=== PATIENT | female | born 1975 | race Caucasian/White ===

== ENCOUNTER 2016-07-06 19:02 | Emergency (ER) | payer OTHER ==
[~2016-07-06] VITALS: Ht 165.1 cm; Wt 76.7 kg
[~2016-07-06 19:02] MED LIST: ASPIR 8181 MG PO; COL100 PO; FER300 PO; HYDROCHLOROTHIA25 MG PO; VITC PO
[2016-07-06 20:55] LABS: BASOPHIL % 0.5 % (0-2); PLATELET COUNT 294 x10^3mcL (130-400)
[2016-07-06 20:59] LABS: RED CELL DISTRIBUTION WIDTH 19.3 % (11.5-14.5)
[2016-07-06 21:16] LABS: CALCIUM 8.6 mg/dL (8.5-10.1); CARBON DIOXIDE 25.8 mmol/L (21-32); CHLORIDE SERUM 104 mmol/L (98-107); CREATININE SERUM 0.5 mg/dL (0.6-1.0); GFR1 > 60 mL/min; GLUCOSE SERUM 91 mg/dL (74-106); POTASSIUM SERUM 3.8 mmol/L (3.5-5.1); SODIUM SERUM 139 mmol/L (136-145)
[2016-07-06 21:26] LABS: ALBUMIN 3.7 g/dL (3.4-5.0); ALKALINE PHOSPHATASE 98 U/L (46-116); AMYLASE 56 U/L (25-115); BILIRUBIN TOTAL 0.34 mg/dL (0.20-1.00); LIPASE 151 IU/L (73-393); TOTAL PROTEIN, SERUM 7.8 g/dL (6.4-8.2)
[2016-07-06 21:40] LABS: ALT/SGPT 33 U/L (14-59); AST/SGOT 18 U/L (15-37)
[2016-07-06 22:41] VITALS: BP 123/76
== END 2016-07-06 22:41 | disposition home or self-care (01) ==
LOC: ED 19:02
PROVIDERS: Emergency Medicine
DX: R11.10 Vomiting, unspecified (principal); I10 Essential (primary) hypertension; Z88.5 Allergy status to narcotic agent; Z87.442 Personal history of urinary calculi
CPT/HCPCS: J2405; J3010; J7030; Q0092

== ENCOUNTER 2016-08-29 01:31 | Emergency (ER) | payer OTHER ==
[2016-08-29 07:22] VITALS: BP 118/70
== END 2016-08-29 07:22 | disposition home or self-care (01) ==
LOC: ED 01:31
DX: K21.9 Gastro-esophageal reflux disease without esophagitis (principal); S39.012A Strain of muscle, fascia and tendon of lower back, initial encounter; Z88.5 Allergy status to narcotic agent; X58.XXXA Exposure to other specified factors, initial encounter; Y93.89 Activity, other specified; Y99.8 Other external cause status; Y92.89 Other specified places as the place of occurrence of the external cause
CPT/HCPCS: J1170; J1885; Q0162

== ENCOUNTER 2016-12-29 16:55 | Emergency (ER) | payer OTHER ==
[2016-12-29 19:53] LABS: BASOPHIL % 0.3 % (0-2); PLATELET COUNT 271 x10^3mcL (130-400)
[2016-12-29 20:03] LABS: CALCIUM 8.7 mg/dL (8.5-10.1); CARBON DIOXIDE 24.8 mmol/L (21-32); CHLORIDE SERUM 105 mmol/L (98-107); CREATININE SERUM 0.6 mg/dL (0.6-1.0); GFR1 > 60 mL/min; GLUCOSE SERUM 118 mg/dL (74-106); POTASSIUM SERUM 3.2 mmol/L (3.5-5.1); SODIUM SERUM 139 mmol/L (136-145)
[2016-12-29 20:08] LABS: ALBUMIN 3.6 g/dL (3.4-5.0); ALKALINE PHOSPHATASE 95 U/L (46-116); ALT/SGPT 21 U/L (14-59); AST/SGOT 13 U/L (15-37); BILIRUBIN TOTAL 0.2 mg/dL (0.20-1.00); TOTAL PROTEIN, SERUM 7.9 g/dL (6.4-8.2)
[2016-12-29 20:09] LABS: RED CELL DISTRIBUTION WIDTH 21.4 % (11.5-14.5)
[2016-12-29 20:46] LABS: rbc morphology (normal/abnorm) ABNORMAL (NORMAL)
[2016-12-29 20:49] LABS: target cell (codocyte) 1+
[2016-12-29 23:23] VITALS: BP 116/72
== END 2016-12-29 23:23 | disposition home or self-care (01) ==
LOC: ED 16:55
PROVIDERS: Emergency Medicine
DX: N93.8 Other specified abnormal uterine and vaginal bleeding (principal); I10 Essential (primary) hypertension; Z88.5 Allergy status to narcotic agent
CPT/HCPCS: 36415

== ENCOUNTER 2018-01-25 14:31 | Emergency (ER) | payer OTHER ==
[~2018-01-25] VITALS: Ht 172.7 cm; Wt 76.7 kg
[2018-01-25 14:36] VITALS: Ht 172.7 cm; Wt 76.7 kg
[2018-01-25 15:30] VITALS: BP 130/77
== END 2018-01-25 15:30 | disposition home or self-care (01) ==
LOC: ED 14:31
DX: B34.9 Viral infection, unspecified (principal); Z88.5 Allergy status to narcotic agent; I10 Essential (primary) hypertension; Z87.442 Personal history of urinary calculi; Z90.89 Acquired absence of other organs
CPT/HCPCS: J1885; J2765; J7613; J7644; Q0163

== ENCOUNTER 2018-05-25 20:20 | Emergency (ER) | payer OTHER ==
[2018-05-25 21:07] VITALS: Ht 167.6 cm
[2018-05-25 21:58] LABS: BASOPHIL % 0.5 % (0-2); PLATELET COUNT 365 x10^3mcL (130-400)
[2018-05-25 22:17] LABS: CALCIUM 9.3 mg/dL (8.5-10.1); CARBON DIOXIDE 25.4 mmol/L (21-32); CHLORIDE SERUM 104 mmol/L (98-107); CREATININE SERUM 0.6 mg/dL (0.6-1.0); GFR1 > 60 mL/min; GLUCOSE SERUM 85 mg/dL (74-106); POTASSIUM SERUM 3.8 mmol/L (3.5-5.1); SODIUM SERUM 140 mmol/L (136-145)
[2018-05-25 22:21] LABS: ALBUMIN 3.8 g/dL (3.4-5.0); ALKALINE PHOSPHATASE 95 U/L (46-116); ALT/SGPT 21 U/L (14-59); AST/SGOT 13 U/L (15-37); BILIRUBIN TOTAL 0.22 mg/dL (0.20-1.00)
[2018-05-26 00:15] VITALS: BP 149/91
== END 2018-05-26 01:28 | disposition home or self-care (01) ==
LOC: ED 20:20
PROVIDERS: Emergency Medicine
DX: N83.201 Unspecified ovarian cyst, right side (principal); Z88.5 Allergy status to narcotic agent; I10 Essential (primary) hypertension; Z98.890 Other specified postprocedural states; Z90.89 Acquired absence of other organs; Z87.442 Personal history of urinary calculi
CPT/HCPCS: 36415